=== PATIENT | male | born 1960 | race Caucasian/White ===

== ENCOUNTER → 2017-01-27 | Outpatient (CLI) | payer MEDICAID | END | disposition home or self-care (01) | LOC: CFH 12:41 | PROVIDERS: ATTEND Internal Medicine Nephrology | DX: N40.0 Benign prostatic hyperplasia without lower urinary tract symptoms (principal); N18.9 Chronic kidney disease, unspecified | CPT/HCPCS: 76770 ==

== ENCOUNTER → 2017-09-15 | Outpatient (CLI) | payer MEDICAID ==
[~2017-09-15] MED LIST: REGADENOSON 0.4 MG/5 ML SYRINGE ONE
== END ==
LOC: RAD 07:51
PROVIDERS: ATTEND Internal Medicine Cardiovascular Disease
DX: Z01.818 Encounter for other preprocedural examination (principal)
CPT/HCPCS: 78452; 93017; A9502; J2785

== ENCOUNTER → 2017-09-17 | Outpatient (CLI) | payer MEDICAID | END | disposition home or self-care (01) | LOC: CVU 12:22 | PROVIDERS: ATTEND Internal Medicine Cardiovascular Disease | DX: Z01.818 Encounter for other preprocedural examination (principal); I07.1 Rheumatic tricuspid insufficiency; E11.9 Type 2 diabetes mellitus without complications | CPT/HCPCS: 93306 ==